=== PATIENT | male | born 1995 | race Caucasian/White ===

== ENCOUNTER → 2020-02-04 | Outpatient (CLI) | payer OTHER | LOC: LAB 12:17 | PROVIDERS: ATTEND Internal Medicine Pulmonary Disease | DX: R51.9 Headache, unspecified (principal); R68.83 Chills (without fever); M79.10 Myalgia, unspecified site; R53.81 Other malaise; R11.0 Nausea; R09.81 Nasal congestion; Z20.828 Contact with and (suspected) exposure to other viral communicable diseases | CPT/HCPCS: U0003 ==

== ENCOUNTER → 2020-03-05 | Outpatient (CLI) | payer OTHER ==
[2020-03-05 14:11] LABS: BASO # 0.1 x10^3/uL (0.0-0.2); BASO % 1 % (0-3); EOS # 0.2 x10^3/uL (0.0-0.7); EOS % 3 % (0-3); HEMATOCRIT 46.3 % (39.0-53.0); HEMOGLOBIN 16.1 g/dL (13.0-17.5); LYMPH # 2.5 x10^3/uL (1.0-4.8); LYMPH % 36 % (24-48); MEAN CORPUSCULAR HEMOGLOBIN 28 pg (25-35); MEAN CORPUSCULAR HGB CONC 35 g/dL (31-37); MEAN CORPUSCULAR VOLUME 82 fL (79-100); MONO # 0.5 x10^3/uL (0.0-1.1); MONO % 8 % (0-9); NEUT # 3.7 x10^3/uL (1.8-7.7); NEUT % 53 % (31-73); PLATELET COUNT 277 x10^3/uL (140-400); RED BLOOD COUNT 5.66 x10^6/uL (4.30-5.70); RED CELL DISTRIBUTION WIDTH 13.1 % (11.5-14.5)
[2020-03-05 14:22] LABS: ALBUMIN 4.1 g/dL (3.4-5.0); ALBUMIN/GLOBULIN RATIO 1.1 (1.0-1.7); CALCIUM 8.9 mg/dL (8.5-10.1); CHOLESTEROL/HDL RATIO 4.4; CREATININE 0.9 mg/dL (0.7-1.3); GFR 104.6; POTASSIUM 4.4 mmol/L (3.5-5.1); TOTAL BILIRUBIN 0.8 mg/dL (0.2-1.0); TOTAL PROTEIN 7.7 g/dL (6.4-8.2)
== END ==
LOC: LAB 13:02
PROVIDERS: ATTEND Family Medicine
DX: Z00.00 Encounter for general adult medical examination without abnormal findings (principal); R53.83 Other fatigue
CPT/HCPCS: 36415; 80053; 80061; 84443; 85025

== ENCOUNTER → 2020-06-25 | Outpatient (CLI) | payer OTHER ==
[2020-06-25 12:34] LABS: BASO # 0.1 x10^3/uL (0.0-0.2); BASO % 1 % (0-3); EOS # 0.1 x10^3/uL (0.0-0.7); EOS % 2 % (0-3); HEMATOCRIT 45.9 % (39.0-53.0); HEMOGLOBIN 15.5 g/dL (13.0-17.5); LYMPH # 2.6 x10^3/uL (1.0-4.8); LYMPH % 37 % (24-48); MEAN CORPUSCULAR HEMOGLOBIN 28 pg (25-35); MEAN CORPUSCULAR HGB CONC 34 g/dL (31-37); MEAN CORPUSCULAR VOLUME 81 fL (79-100); MONO # 0.6 x10^3/uL (0.0-1.1); MONO % 9 % (0-9); NEUT # 3.6 x10^3/uL (1.8-7.7); NEUT % 52 % (31-73); PLATELET COUNT 271 x10^3/uL (140-400); RED BLOOD COUNT 5.65 x10^6/uL (4.30-5.70); RED CELL DISTRIBUTION WIDTH 12.9 % (11.5-14.5)
[2020-06-25 12:54] LABS: ALBUMIN 3.8 g/dL (3.4-5.0); ALBUMIN/GLOBULIN RATIO 1.1 (1.0-1.7); CALCIUM 8.9 mg/dL (8.5-10.1); CREATININE 0.9 mg/dL (0.7-1.3); GFR 104.6; POTASSIUM 4.1 mmol/L (3.5-5.1); TOTAL BILIRUBIN 0.5 mg/dL (0.2-1.0); TOTAL PROTEIN 7.4 g/dL (6.4-8.2)
== END ==
LOC: LAB 12:09
PROVIDERS: ATTEND Family Medicine
DX: R10.11 Right upper quadrant pain (principal)
CPT/HCPCS: 36415; 80053; 82150; 83690; 85025

== ENCOUNTER → 2020-07-03 | Outpatient (CLI) | payer OTHER ==
--- NOTE | 2020-07-03 12:06 | RAD ---
CLINICAL HISTORY: Right upper quadrant pain COMPARISON: None available. TECHNIQUE: Ultrasound of the upper abdomen was performed. FINDINGS: The liver measures 19.6 cm in length in the right mid clavicular line. Increased hepatic echogenicit y relative to the right kidney consistent with hepatic steatosis.. There are no focal liver lesions. Flow seen within the portal veins. Gallbladder is mildly contracted. Within these constraints no definite wall thickening, gallstones or pericholecystic fluid. The common bile duct measures 0.3 cm. The spleen measures 14.8 cm, enlarged. The pancreas is mostly obscured by intestinal gas.. The right kidney measures 12.1 cm in bipolar length. The left kidney measures 13.5 cm in bipolar shayy th. No focal renal lesion. No hydronephrosis. No hydroureter. Visualized portions of the abdominal aorta and inferior vena cava are unremarkable. There is no free fluid in the upper abdomen. Imaging of the right lower quadrant was also performed. The appendix was not identified. IMPRESSION: 1. Hepatomegaly and fatty liver 2. Splenomegaly. 3. Gallbladder is contracted but otherwise unremarkable. 4. Imaging of the right lower quadrant was also performed. The appendix was not identified. Electronically signed by: Aston Ngo MD (07/03/2020 12:03 PM) [id number]
--- NOTE | 2020-07-03 12:07 | RAD ---
EXAM: Ultrasound extremity nonvascular DATE: 07/03/2020 11:11 AM INDICATION: Reason: LT AXILLA LUMP / Spl. Instructions: / History: COMPARISON: No Prior TECHNIQUE: Grayscale and color Doppler sonographic evaluation was performed in the left axilla FINDINGS/ IMPRESSION: In the subcutaneous tissues of the left axilla, a 11 x 3 x 11 millimeter hypoechoic structure is seen within the subcutaneous tissues, possibly complex cyst although more likely to represent sebaceous c yst given suspected neck on one of the images. Consider follow-up imaging to establish stability. Electronically signed by: Aston Ngo MD (07/03/2020 12:05 PM) [id number]
== END ==
LOC: US 11:06
PROVIDERS: ATTEND Family Medicine
DX: K76.0 Fatty (change of) liver, not elsewhere classified (principal); R16.2 Hepatomegaly with splenomegaly, not elsewhere classified; K82.0 Obstruction of gallbladder; R22.32 Localized swelling, mass and lump, left upper limb
CPT/HCPCS: 76700; 76881

== ENCOUNTER → 2020-10-21 | Outpatient (CLI) | payer OTHER | LOC: LAB 14:26 | PROVIDERS: ATTEND Internal Medicine Pulmonary Disease | DX: R05 Cough (principal); R51.9 Headache, unspecified; R43.9 Unspecified disturbances of smell and taste; R09.81 Nasal congestion; Z20.822 Contact with and (suspected) exposure to COVID-19 | CPT/HCPCS: 87426; U0003; U0005 ==

== ENCOUNTER → 2021-04-04 | Outpatient (CLI) | payer OTHER | LOC: LAB 22:00 | PROVIDERS: ATTEND Internal Medicine Pulmonary Disease | DX: U07.1 COVID-19 (principal); J02.9 Acute pharyngitis, unspecified; R09.81 Nasal congestion; R43.9 Unspecified disturbances of smell and taste; R68.89 Other general symptoms and signs; R53.81 Other malaise; M79.10 Myalgia, unspecified site | CPT/HCPCS: U0003; U0005 ==